=== PATIENT | male | born 1990 | race Caucasian/White ===

== ENCOUNTER 2024-04-03 00:08 | Emergency (ER) | payer BC ==
[~2024-04-03] VITALS: Ht 170.2 cm; Wt 76.0 kg
[2024-04-03 00:11] VITALS: TEMP 98.1; O2SAT 99
[2024-04-03 00:51] LABS: BASOPHILS % 0.5 % (0.0-2.0); EOSINOPHILS % 0.7 % (0.0-5.0); HEMATOCRIT. 35.9 % (42.0-52.0); LYMPHOCYTES % 35.3 % (20.0-50.0); MEAN CORPUSCULAR HEMOGLOBIN 32.6 pg (28.0-32.0); MEAN CORPUSCULAR HGB CONC 33.5 g/dL (31.0-37.0); MEAN CORPUSCULAR VOLUME 97.3 fL (80.0-94.0); MEAN PLATELET VOLUME 7.8 fl (7.4-10.4); MONOCYTES % 6.3 % (2.0-8.0); NEUTROPHILS % 57.2 % (40.0-76.0); PLATELET 184 x1000/uL (130-400); RED BLOOD CELL COUNT 3.68 mill/uL (4.7-6.1); RED CELL DISTRIBUTION WIDTH 13.1 % (11.6-14.6); WHITE BLOOD COUNT 4.7 x1000/uL (4.5-11.0)
[2024-04-03 00:58] LABS: CARBON DIOXIDE 25 mEq/L (21-32); CHLORIDE 110 mEq/L (98-107); POTASSIUM 3.8 mEq/L (3.5-5.1); SODIUM 140 mEq/L (136-145)
[2024-04-03 00:59] LABS: CALCIUM 8.5 mg/dL (8.7-10.4)
[2024-04-03 01:04] LABS: CREATININE 0.9 mg/dL (0.6-1.3); GLUCOSE 110 mg/dL (70-105); UREA NITROGEN BLOOD 11 mg/dL (9-23)
[2024-04-03 01:54] VITALS: BP 114/57; PULSE 98; RESP 19; O2SAT 99
== END 2024-04-03 01:55 | disposition home or self-care (01) ==
LOC: ER 00:19
DX: R55 Syncope and collapse (principal)
CPT/HCPCS: 80048; 85025; 36415; 93005; 99284; Z7610 ×2